=== PATIENT | female | born 1955 | race Caucasian/White ===

== ENCOUNTER 2018-04-03 12:37 | Observation (INO) | payer OTHER ==
[~2018-04-03] VITALS: Ht 175.3 cm; Wt 70.3 kg
--- OUTSIDE RECORDS SUMMARY | 2018-04-03 12:40 | XMS REPORT | Clinical Summary ---
Author Author [facility] Organization [facility] Address Unknown Phone Unavailable Care Team Providers Care Fire Safety Director Name Role Phone Florence Shine MD PCP Allergies Comments Active Allergy Reactions Severity Noted Date Amitriptyline 12/24/2017 Codeine 12/24/2017 Sulfa (Sulfonamide 12/24/2017 Antibiotics) Medications End Date Status Medication Sig Dispensed Refills Start Date Active BISAC-EVAC 10 mg UNW AND I 1 1 suppository SUP REC QD 8 UTD Active lygypnfmya-wnhtvyf-azzzkd TK ONE C PO 3 ne (FIORINAL) 50-325-40 TID 8 mg per capsule Active diazePAM (VALIUM) 5 MG TK 1 T PO BID 0 tablet 8 Active ergocalciferol (VITAMIN TK 1 C PO 1 0 D2) 50,000 unit capsule TIME A WK 8 Active escitalopram (LEXAPRO) 20 TK 2 TS PO QD 1 MG tablet 8 Active gabapentin (NEURONTIN) TK 3 CS PO 1 300 mg capsule TID 8 Active fenofibrate (TRICOR) 48 TK 1 T PO QD 2 MG tablet 8 Active HYDROcodone-acetaminophen TAKE 1 TABLET 0 (NORCO) 10-325 mg per BY MOUTH 8 tablet NEEDED 2 TO 3 TIMES DAILY Active hyoscyamine (LEVSIN) DIS 1 T UNT B 0 0.125 mg SL tablet MEALS PRN 8 Active lidocaine-tetracaine 7-7 0 % cream 8 Active omeprazole (PriLOSEC) 40 TK 1 C PO BID 2 MG capsule 8 Active pravastatin (PRAVACHOL) TK 1 T PO QD 2 40 MG tablet 8 Active tiZANidine (ZANAFLEX) 4 TK 1 T PO Q 8 0 MG tablet H PRF MSP 8 Active traZODone (DESYREL) 50 MG TK 2 TS PO 2 tablet ONCE A DAY HS 8 PRN Active BOTOX 200 unit recon soln 0 8 Active aspirin (ECOTRIN) 81 MG Take 81 mg by 0 enteric coated tablet mouth daily. Active sucralfate (CARAFATE) 100 Take 1 g by 0 mg/mL suspension mouth 4 (four) times a day with meals and nightly. Active ferrous sulfate 325 (65 Take 325 mg 0 FE) MG tablet by mouth daily with breakfast. Active fexofenadine (SALLY) Take 180 mg 0 180 MG tablet by mouth daily. Active Problems Not on file Encounters Care Team Description Date Type Specialty Todd Oliver MD ESOPHAGOGASTRODUODENOSCOPY (EGD) 12/25/2017 Surgery Gastroenterology Willie Lagos MD 12/25/2017 Anesthesia Gastroenterology Event Todd Oliver MD 12/25/2017 Hospital Gastroenterology Encounter after 04/02/2017 Family History Medical History Relation Name Comments Heart disease Father Colon cancer Maternal Grandmother Diabetes Maternal Grandmother Colon cancer Mother Relation Name Status Comments Father Maternal Grandmother Mother Social History Date Tobacco Use Types Packs/Day Years Used Current Every Day Smoker Cigarettes 0.1 Smokeless Tobacco: Never Used Comments: 2-3 cigarettes per day Alcohol Use Drinks/Week oz/Week Comments No Sex Assigned at Date Recorded Not on file Industry Job Start Date Occupation Not on file Not on file Not on file Travel End Travel History Travel Start No recent travel history available. Last Filed Vital Signs Time Taken Vital Sign Reading 12/25/2017 8:13 AM CDT Blood Pressure 166/70 12/25/2017 8:13 AM CDT Pulse 60 12/25/2017 8:00 AM CDT Temperature 36.6 C (97.8 F) 12/25/2017 8:13 AM CDT Respiratory Rate 17 12/25/2017 8:13 AM CDT Oxygen Saturation 98% - Inhaled Oxygen - Concentration - Weight - 12/25/2017 6:45 AM CDT Height 175.3 cm (5' 9") - Body Mass Index - Plan of Treatment Not on file Procedures Comments Procedure Name Priority Date/Time Associated Diagnosis SURGICAL PATHOLOGY Routine 12/25/2017 REQUEST 7:53 AM CDT ESOPHAGOGASTRODUODENOSCOP 12/25/2017 R10.9, D64.9, K25.7, Y (EGD) 7:45 AM CDT K21.9 ABDOMINAL PAIN, ANEMIA, GASTRIC ULCER GERD ECG 12-LEAD Routine 12/25/2017 6:37 AM CDT after 04/02/2017 Results * Surgical pathology request (12/25/2017 7:53 AM CDT) [facility] DEPARTMENT OF PATHOLOGY AND GENOMIC MEDICINE Surgical pathology report See link below for PDF Lab [facility] DEPARTMENT OF Report PATHOLOGY AND GENOMIC MEDICINE Result status This is Final Report for [facility] DEPARTMENT OF [id number] PATHOLOGY AND GENOMIC MEDICINE Performing Organization Address City[facility] Phone Number [facility] DEPARTMENT [address] [place] [address] PATHOLOGY AND GENOMIC MEDICINE * ECG 12 lead (12/25/2017 6:37 AM CDT) Ventricular rate 166 [facility] Atrial rate 166 [facility] QRSD interval 6 [facility] QT interval 90 [facility] QTC interval 149 [facility] QRS axis 1 0 [facility] T wave axis 266 [facility] EKG impression Demand pacemaker, [facility] interpretation is based on intrinsic rhythm-Undetermined rhythm-Indeterminate axis-Pulmonary disease pattern-Nonspecific ST and T wave abnormality-Abnormal ECG-No previous ECGs available- Performing Organization Address City/State[facility] Phone Number [facility] MUSE [address] [place] [address] after 04/02/2017 Insurance Payer Benefit Subscriber ID Type Phone Address Plan / Group [facility] xxxxxxxxx HMO/PPO THCARE CHOICE/CHO ICE + Advance Directives Patient has advance care planning documents on file. For more information, erickson snyder contact: Bobby Salinas [address] [place] [address]
--- NOTE | 2018-04-03 13:09 | Diagnostic Imaging Report ---
CT BRAIN WO HISTORY: Altered mental status COMPARISON: None. TECHNIQUE: Noncontrast axial scans were obtained from skull base to the vertex. Coronal and sagittal reconstructions obtained from the axial data. One or more of the following dose reduction techniques were used: Automated exposure control, adjustment of the mA and/or kV according to patient size, and/or utilization of iterative reconstruction technique. DISCUSSION: Scalp/Skull: Unremarkable. Brain sulci: Appropriate for patient's age. Ventricles: Normal in size and configuration. No hydrocephalus. Extra-axial spaces: No masses or fluid collections. Mild carotid siphon calcifications are present. Parenchyma: Mild periventricular white matter hypodensities are likely chronic microvascular ischemic changes. Otherwise, no masses, hemorrhage, or large vascular territory acute infarct. Dural sinuses: No abnormal densities. Sellar/Suprasellar region: Intact. Skull base: Intact. Incidental findings: None. IMPRESSION: No acute intracranial abnormalities. Mild supratentorial chronic microvascular ischemic change. Signed by: Dr. Harrison Barber M.D. on 04/03/2018 1:06 PM
--- NOTE | 2018-04-03 13:25 | Diagnostic Imaging Report ---
A single frontal view of the chest. HISTORY: Altered mental status, found down COMPARISON: None available. DISCUSSION: Portable technique, limits sensitivity of the exam. Tubes/Lines: Left-sided implanted dual-lead cardiac device. Lungs and pleura: Low lung volumes result in bibasilar vascular crowding, accentuation of the pulmonary interstitial markings, central pulmonary vasculature, and the cardiac silhouette. Allowing for these limitations, the findings are as follows: No evidence of a consolidative pneumonia or pulmonary alveolar edema. No definite pleural effusion or pneumothorax is identified. Heart and mediastinum: The cardiomediastinal silhouette appears unremarkable. Bones: No acute osseous lesion is identified, given this limited exam. IMPRESSION: No acute radiographic abnormality. Signed by: Dr. Dajuan Gimenez D.O., M.M.M. on 04/03/2018 1:21 PM
[2018-04-03 13:38] LABS: BASOPHILS # (AUTO) 0.1 (0.0-0.1); BASOPHILS % 0.8 % (0.0-1.0); EOSINOPHILS # (AUTO) 0.2 (0.0-0.4); EOSINOPHILS % 3.1 % (0.0-6.0); HEMATOCRIT 39.3 % (34.2-44.1); HEMOGLOBIN 12.6 g/dL (12.0-16.0); LYMPHOCYTES # (AUTO) 1.3 (1.0-3.2); LYMPHOCYTES % 17.4 % (18.0-39.1); MEAN CORPUSCULAR HGB CONC 32.1 g/dL (31-35); MEAN CORPUSCULAR VOLUME 99.7 fL (81-99); MONOCYTES # (AUTO) 0.3 (0.2-0.8); MONOCYTES % 4.2 % (4.4-11.3); NEUTROPHILS # (AUTO) 5.7 (2.1-6.9); NEUTROPHILS % 74.2 % (38.7-80.0); PLATELET COUNT 251 x10e3/uL (140-360); RED BLOOD COUNT 3.94 x10e6/uL (3.6-5.1); RED CELL DISTRIBUTION WIDTH 12.6 % (11.7-14.4)
[2018-04-03 13:50] LABS: ALANINE AMINOTRANSFERASE 11 IU/L (0-55); ALBUMIN 3.5 g/dL (3.5-5.0); ALKALINE PHOSPHATASE 91 IU/L (40-150); ANION GAP 13.4 mmol/L (8-16); BLOOD UREA NITROGEN 11 mg/dL (7-26); BUN/CREATININE RATIO 14 (6-25); CALCIUM 9.8 mg/dL (8.4-10.2); CARBON DIOXIDE 27 mmol/L (22-29); CHLORIDE 105 mmol/L (98-107); CREATINE KINASE 55 IU/L (29-168); CREATININE, SERUM 0.81 mg/dL (0.57-1.11); EST GLOMERULAR FILTRATION RATE > 60 ML/MIN (60-); GLUCOSE 92 mg/dL (74-118); POTASSIUM 4.4 mmol/L (3.5-5.1); SODIUM 141 mmol/L (136-145)
[2018-04-03 14:15] LABS: BILIRUBIN,URINE NEGATIVE (NEGATIVE); CLARITY,URINE SL CLOUDY (CLEAR); COLOR,URINE STRAW (YELLOW); KETONES,URINE NEGATIVE (NEGATIVE); LEUKOCYTE ESTERASE ,URINE NEGATIVE (NEGATIVE); NITRITE,URINE NEGATIVE (NEGATIVE); PROTEIN,URINE DIPSTICK NEGATIVE (NEGATIVE); URINE UROBILINOGEN 0.2 mg/dL (0.2 - 1)
[2018-04-03 14:28] LABS: BACTERIA,URINE MODERATE /HPF; HYALINE CASTS 0-1 (0-1)
[2018-04-03 14:39] LABS: INR 0.82; PARTIAL THROMBOPLASTIN TIME 27.5 seconds (23.8-35.5); PROTHROMBIN TIME 12.1 seconds (11.9-14.5)
[2018-04-03 15:14] LABS: AMPHETAMINES SCREEN,URINE NEGATIVE (NEGATIVE); BENZODIAZEPINES SCREEN,URINE POSITIVE (NEGATIVE); PHENCYCLIDINE SCREEN,URINE NEGATIVE (NEGATIVE)
[2018-04-03] MEDS ORDERED: ASPIRIN 81 MG CHEW TAB PO ONE (15:45)
--- OUTSIDE RECORDS SUMMARY | 2018-04-03 16:20 | XMS REPORT | Clinical Summary ---
Author Author [facility] Organization [facility] Address Unknown Phone Unavailable Care Team Providers Care Insulation Batting Machine Operator Name Role Phone Florence Shine MD PCP Allergies Comments Active Allergy Reactions Severity Noted Date Amitriptyline 12/24/2017 Codeine 12/24/2017 Sulfa (Sulfonamide 12/24/2017 Antibiotics) Medications End Date Status Medication Sig Dispensed Refills Start Date Active BISAC-EVAC 10 mg UNW AND I 1 1 suppository SUP REC QD 8 UTD Active dhbmvpkxml-qilpcqc-fqlssj TK ONE C PO 3 ne (FIORINAL) [...] Surgical pathology request (12/25/2017 7:53 AM CDT) [facility] DEPARTMENT OF PATHOLOGY AND GENOMIC MEDICINE Surgical pathology report See link below for PDF Lab [facility] DEPARTMENT OF Report PATHOLOGY AND GENOMIC MEDICINE Result status This is Final Report for [facility] DEPARTMENT OF [id number] PATHOLOGY AND GENOMIC MEDICINE Performing Organization Address City/[facility] Phone Number [facility] DEPARTMENT [address] [place] [address] PATHOLOGY AND GENOMIC MEDICINE * ECG 12 [...] ECG-No previous ECGs available- Performing Organization Address City/State/[facility] Phone Number [facility] [address] [place] [address] after 04/02/2017 Insurance Payer Benefit Subscriber ID Type Phone Address Plan / Group [facility] xxxxxxxxx HMO/PPO THCARE CHOICE/CHO ICE + Advance Directives Patient has advance care planning documents on file. For more information, erickson snyder contact: Bobby Salinas [address] [place] [address]
--- OUTSIDE RECORDS SUMMARY | 2018-04-03 16:20 | XMS REPORT ---
Author Author [facility] Address Unknown Phone Unavailable Care Team Providers Care Service Transformer Repair Supervisor Name Role Phone Arlene LOPEZ Unavailable Unavailable Problems This patient has no known problems. Allergies, Adverse Reactions, Alerts This patient has no known allergies or adverse reactions. Medications This patient has no known medications. Results Test Description Test Time Test Comments Text Results Atomic Results Result Comments CHEST SINGLE (PORTABLE) 2018-04-03 13:19:00 [facility] [address] [address] Patient Name: DUDLYE DENNIS MR #: [id number] : 1955 Age/Sex: 62/F Req #: [id number] Adm Physician: Ordered by: VAISHNAVI BOLANOS NP Report #: [id number] Location: ER Room/Bed: Procedure: [id number] DX/CHEST SINGLE (PORTABLE) Exam Date: 04/03/18 Exam Time: 1250 REPORT STATUS: Signed A single frontal view of the chest. HISTORY: Altered mental status, found down COMPARISON: None available. DISCUSSION: Portable technique, limits sensitivity of the exam. Tubes/Lines: Left-sided implanted dual-lead cardiac device. Lungs and pleura: Low lung volumes result in bibasilar vascular crowding, accentuation of the pulmonary interstitial markings, central pulmonary vasculature, and the cardiac silhouette. Allowing for these limitations, the findings are as follows: No evidence of a consolidative pneumonia or pulmonary alveolar edema. No definite pleural effusion or pneumothorax is identified. Heart and mediastinum: The cardiomediastinal silhouette appears unremarkable. Bones: No acute osseous lesion is identified, given this limited exam. IMPRESSION: No acute radiographic abnormality. Signed by: Dr. Dajuan Gimenez D.O., M.M.M. on 04/03/2018 1:21 PM Dictated By: DAJUAN GIMENEZ DO 1321 Transcribed By: ALESSANDRO on 04/03/18 132 COPY TO: VAISHNAVI BOLANOS NP CT BRAIN WO 2018-04-03 13:03:00 [address] [address] Patient Name: DUDLEY DENNIS MR #: [id number] : 1955 Age/Sex: 62/F Req #: [id number] Adm Physician: Ordered by: VAISHNAVI BOLANOS NP Report #: [id number] Location: ER Room/Bed: Procedure: [id number] CT/CT BRAIN WO Exam Date: 04/03/18 Exam Time: 1230 REPORT STATUS: Signed CT BRAIN WO HISTORY: Altered mental status MARYCARMEN RISON: None. TECHNIQUE: Noncontrast axial scans were obtained from skull base to the vertex. Coronal and sagittal reconstructions obtained from the axial data. One or more of the following dose reduction techniques were used: Automated exposure control, adjustment of the mA and/or kV according to patient size, and/or utilization of iterative reconstruction technique. DISCUSSION: Scalp/Skull: Unremarkable. Brain sulci: Appropriate for patient's age. Ventricles: Normal in size and configuration. No hydrocephalus. Extra-axial spaces: No masses or fluid collections. Mild carotid siphon calcifications are present. Parenchyma: Mild periventricular white matter hypodensities are likely chronic microvascular ischemic changes. Otherwise, no masses, hemorrhage, or large vascular territory acute infarct. Dural sinuses: No abnormal densities. Sellar/Suprasellar region: Intact. Skull base: Intact. Incidental findings: None. IMPRESSION: No acute intracranial abnormalities. Mild supratentorial chronic microvascular ischemic change. Signed by: Dr. Harrison Barber M.D. on 04/03/2018 1:06 PM Dictated By: HARRISON BARBER MD 1306 Transcribed By: ALESSANDRO on 04/03/18 1306 COPY TO: VAISHNAVI BOLANOS NP
[2018-04-03] MEDS: SODIUM CHLORIDE 0.9% 1000ML 1,000 ML IV SCH (17:30)
[2018-04-03] MEDS ORDERED: CETIRIZINE HCL10 MG PO (18:52)
[2018-04-03] MEDS ORDERED: BACLOFEN10 MG PO (18:52)
[2018-04-03] MEDS ORDERED: DIAZEPAM5 MG PO (18:52)
[2018-04-03] MEDS ORDERED: HYDROCODON-ACE1 EAC9 PO (18:52)
[2018-04-03] MEDS ORDERED: HYOSCYAMINE0.125 MG PO (18:52)
[2018-04-03] MEDS ORDERED: TIZANIDINE HCL4 MG PO (18:52)
[2018-04-03] MEDS ORDERED: BUTALB-ACETAMI1 EACH PO (18:52)
[2018-04-03] MEDS ORDERED: GABAPENTIN300 MG PO (18:52)
[2018-04-03] MEDS ORDERED: TRAZODONE HCL100 MG PO (18:52)
[2018-04-03 21:31] LABS: CREATINE KINASE MB 0.9 ng/mL (0-5.0)
--- NOTE | 2018-04-03 22:49 | Consultation ---
DATE OF CONSULTATION: April 03, 2018 NEUROLOGY CONSULT NOTE HISTORY OF PRESENT ILLNESS: Ms. Andrade is a 62-year-old right hand dominant woman with reported past medical history of gastroparesis, autonomic dysfunction, and multiple syncopal events, admitted to [facility] on April 03, 2018, with encephalopathy. Late in the morning/early in the afternoon on the day of admission, the patient was found on the ground unresponsive near [facility] which is within 1 mile of the hospital. When asked what she last remembers, Ms. Andrade reports walking on a sidewalk near [facility]. She is uncertain as to the content of her next memory. The patient endorses a possible left-sided visual disturbance, but cannot describe it further. She reports possible left hemiparesis. The patient does not endorse dysarthria or aphasia, hemihypesthesia, or dizziness. Ms. Andrade has not attempted to walk since she was found on the ground unresponsive. Therefore, it is unknown if she has poor balance or impairment of gait. As stated above, the patient is very confused. Ms. Andrade is aware of her confusion and becomes easily frustrated when she is unable to answer questions that in her mind she "ought to know the answer to". Ms. Andrade was brought to the emergency center at [facility] for further evaluation. Upon arrival in the emergency center, the patient was afebrile with a blood pressure of 141/95 mmHg and a pulse of 69 beats per minute. The patient's neurological examination was significant for a decreased level of responsiveness, disorientation to place, time, and situation, as well as left-sided weakness, especially affecting the left leg. Inconsistencies in the patient's ability to recall certain information as well as to follow commands was noted. While in the emergency center, routine blood work was obtained and was unremarkable except as follows: A urine drug screen was positive for opiates and benzodiazepines. A CT of the brain without contrast was performed while the patient was in the emergency center. There is no evidence of recent large territorial ischemia or hemorrhage. Ms. Quinns encephalopathy has improved very little while in the emergency center. Therefore, the patient will be admitted to [facility] under observation status for further evaluation and treatment of her symptoms. The patient does report possibly experiencing similar symptoms previously. These symptoms were attributed to a medication or medications. Ms. Andrade does not report any recent changes in her medications (i.e., in the past few 2 days). She does not report missing doses of her medications nor does she report taking extra doses of her medications. Ms. Andrade endorses a possible prior seizure, but cannot recall any of the details surrounding this episode. REVIEW OF SYSTEMS: Confusion, blurred vision, weakness of the left arm and left leg. Otherwise, a 12-point review of systems is negative. PAST MEDICAL HISTORY: Autonomic dysfunction, gastroparesis, and multiple syncopal events. PAST SURGICAL HISTORY: Ms. Andrade reports having a pacemaker placed for gastroparesis. However, the pacemaker is located in her chest between her left breast and her left color bone. The patient has a card from [employer] identifying the pacemaker as an AICD/defibrillator. The only other surgery the patient reports is a possible gastric bypass. PAST HOSPITALIZATIONS: Surgeries/procedures as listed, gastroparesis, multiple prior hospitalizations for various diagnoses at [facility]. FAMILY MEDICAL HISTORY: The patient's paternal grandparents are . Their medical histories are unknown. The patient's maternal grandparents are . The maternal grandfather's medical history is unknown. The maternal grandmother is from heart disease. The patient's father is . His only known history is transverse myelitis in his 20s or 30s. The patient's mother is . She had a medical history of early onset Alzheimer disease. The patient has 2 siblings, a brother and a sister, both of whom are living. The brother is healthy. The sister has hepatitis C and arthritis. Ms. Andrade has 1 child, a son, who is alive and healthy. SOCIAL HISTORY: The patient is . 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 The patient endorses a prior history of tobacco use, but quit smoking cigarettes 4 to 5 weeks ago. The patient endorses a prior history of alcohol abuse. However, she has been sober for 27 years. The patient does not report current or prior recreational drug use. HOME MEDICATIONS 1. Hyoscyamine 0.125 mg take 1 tablet sublingually before meals as needed. 2. Gabapentin 300 mg 3 capsules by mouth 3 times daily. 3. Trazodone 100 mg take 1 tablet by mouth at bedtime as needed for insomnia. 4. Cetirizine 10 mg take 1 tablet by mouth daily as needed for allergies. 5. Baclofen 10 mg take 1/2 to 1 tablet by mouth twice daily. 6. Fioricet 1 tablet by mouth every 4 hours as needed for headache. 7. Hydrocodone/acetaminophen 10 and 325 mg take 1 tablet by mouth twice daily to 3 times daily as needed for pain. 8. Tizanidine 4 mg 1 tablet by mouth every 8 hours as needed for muscle spasm. 9. Diazepam 5 mg take 1 tablet by mouth twice daily as needed for anxiety. ALLERGIES: SULFA. NO KNOWN FOOD ALLERGIES. NO KNOWN ALLERGIES TO LATEX. NO KNOWN ALLERGIES TO IODINE OR OTHER CONTRAST MATERIALS. PHYSICAL EXAMINATION VITAL SIGNS: Height 67 inches, weight 150 pounds, BMI 23.5 kg per meter squared. Blood pressure 141/95 mmHg, pulse 69 beats per minute, respiratory rate 17 breaths per minute, and oxygen saturation 95% on room air. GENERAL: The patient is awake and alert. Ms. Andrade appears mildly distressed secondary to not being able to recall events which occurred earlier in the day. HEENT: Normocephalic, atraumatic. Pupils are equal, round, and reactive to light. Moist mucous membranes. NECK: Supple. No appreciable thyromegaly. No appreciable carotid bruits. CARDIOVASCULAR: S1 and S2, regular rate and rhythm. No murmurs, rubs, or gallops. RESPIRATORY: Clear to auscultation bilaterally. No wheezes, rhonchi, or rales. EXTREMITIES: The skin is warm and dry. No clubbing, cyanosis, or edema. The posterior tibial and dorsalis pedis pulses are 2+ and symmetric. SKIN: No rashes or lesions. NEUROLOGIC Memory/Attention: The patient is awake and alert, oriented to person, place (hospital, city, county, state), but not to time or situation. Cranial Nerves: Cranial nerve I: Not tested. Cranial nerve II, III, IV, and : Pupils are equal and round, react briskly to light (from 5 mm to 3 mm). Extraocular movements intact. No nystagmus. Cranial nerve V: Sensation to light touch and pinprick is intact in the bilateral V1 through V3 distributions. Strength of the temporalis and masseter muscles is within normal limits. Cranial nerve VII: The face is symmetric as are all facial movements. Strength is within normal limits. Cranial nerve VIII: Hearing is intact to finger rub bilaterally. Cranial nerve IX, X: The soft palate elevates equally and symmetrically. Cranial nerve XII: Normal strength of the bilateral sternocleidomastoid and trapezius muscles. Cranial nerve XII: The tongue protrudes midline and moves symmetrically from side to side. Strength: Bulk is normal. Strength is 5/5 in the bilateral deltoids, biceps, triceps, wrist flexors and extensors, finger flexors and extensors, intrinsic hand muscles, hip flexors, knee flexors and extensors, ankle dorsiflexion and plantar flexion, and intrinsic foot muscles. Tone is normal. DTRs: Deep tendon reflexes are 1+ and symmetric at the triceps, biceps, brachioradialis, patellae, and Achilles. Plantar responses are flexor bilaterally. Sensation: Sensation is intact to light touch and pinprick in both arms and both legs. Cerebellar: Nqlonu-qvwo-cmwhoa and heel-barnes movements are intact without dysmetria or other impairment. Gait: Deferred. Speech: Spontaneous speech is normal without appreciable dysarthria or aphasia. Repetition is intact. Involuntary Movements: None. Pronator Drift: None. LABORATORY DATA: A comprehensive metabolic panel is unremarkable. Lactic acid 16.2. The CBC with differential and platelets reveals a white blood cell count of 7.63 with 74.2% neutrophils, 17.4% lymphocytes, 4.2% monocytes, 3.1% eosinophils, and 0.8% basophils. The hemoglobin and hematocrit are 12.6 and 39.3 respectively. The platelet count is 251,000. PT, PTT, and INR are within normal limits. A urinalysis is significant for 1+ blood, 6 to 10 red blood cells, and moderate urine bacteria. A urine drug screen is positive for opiates and benzodiazepines. DIAGNOSTIC STUDIES: Electrocardiogram, April 03, 2018: Normal sinus rhythm at 66 beats per minute. Chest x-ray, April 03, 2018: No acute radiographic abnormality. CT of the brain without contrast, April 03, 2018: On my review, there is no evidence of recent large territorial ischemia, hemorrhage, mass, or mass effect. Cerebral volumes are appropriate for age. There are findings compatible with mild to moderate chronic small vessel ischemic disease. ASSESSMENT AND PLAN: Ms. Andrade is a 62-year-old right hand dominant woman with past medical history as detailed, admitted to [facility] with encephalopathy of unknown etiology. At present, other than disorientation to time and situation, the patient's neurological examination is nonfocal. Her laboratory data and other diagnostic studies have been reviewed and are documented above. As stated above, the etiology of the patient's confusion is unclear. It is unlikely the patient's symptoms represent a transient ischemic attack due to the duration of the symptoms. A stroke is a possibility but unlikely given an otherwise nonfocal neurological examination. A seizure with prolonged postictal phase is a possible diagnosis. Ms. Andrade has prescriptions for pain medications, muscle relaxants, and benzodiazepines. It is possible her symptoms are due to acute drug intoxication. RECOMMENDATIONS 1. Additional laboratory data will be ordered as follows: Thyroid-stimulating hormone, ammonia level, vitamin B1 level, vitamin B12 level, rapid plasma reagent, urine culture, blood cultures x2, and blood alcohol level. 2. A routine EEG will be ordered to evaluate for seizure activity. 3. Ms. Andrade reports her pacemaker is MRI compatible. Efforts will be made to determine whether or not Ms. Andrade may undergo an MRI of the brain without contrast. Otherwise, a repeat CT of the brain without contrast will be considered on April 04, 2018. 4. Avoid sedative/hypnotic and pain medications as these will alter the patient's sensorium. 5. Utilize environmental cues to combat delirium. 6. Defer treatment of the remaining medical comorbidities to the primary and other services following the patient. Thank you for this consultation. I will continue to follow the patient while she remains in the hospital. TIME SPENT: 70 minutes. Job#: [id number] JACE
[2018-04-04] VITALS (8 sets, daily range): BP systolic 124–144; BP diastolic 58–69
[2018-04-04] MEDS: SODIUM CHLORIDE 0.9% 1000ML 1,000 ML IV SCH (04:13)
[2018-04-04 04:57] LABS: BASOPHILS # (AUTO) 0.1 (0.0-0.1); BASOPHILS % 0.6 % (0.0-1.0); EOSINOPHILS # (AUTO) 0.2 (0.0-0.4); EOSINOPHILS % 2.3 % (0.0-6.0); HEMATOCRIT 34.9 % (34.2-44.1); HEMOGLOBIN 11.6 g/dL (12.0-16.0); LYMPHOCYTES # (AUTO) 1.8 (1.0-3.2); LYMPHOCYTES % 22.7 % (18.0-39.1); MEAN CORPUSCULAR HEMOGLOBIN 32.2 pg (28-32); MEAN CORPUSCULAR HGB CONC 33.2 g/dL (31-35); MEAN CORPUSCULAR VOLUME 96.9 fL (81-99); MONOCYTES # (AUTO) 0.5 (0.2-0.8); MONOCYTES % 5.9 % (4.4-11.3); NEUTROPHILS # (AUTO) 5.5 (2.1-6.9); NEUTROPHILS % 68.3 % (38.7-80.0); PLATELET COUNT 242 x10e3/uL (140-360); RED CELL DISTRIBUTION WIDTH 12.4 % (11.7-14.4)
[2018-04-04 05:24] LABS: ALANINE AMINOTRANSFERASE 10 IU/L (0-55); ALBUMIN 3.2 g/dL (3.5-5.0); ALKALINE PHOSPHATASE 85 IU/L (40-150); ANION GAP 12.9 mmol/L (8-16); BLOOD UREA NITROGEN 9 mg/dL (7-26); BUN/CREATININE RATIO 14 (6-25); CALCIUM 9.2 mg/dL (8.4-10.2); CARBON DIOXIDE 23 mmol/L (22-29); CHLORIDE 109 mmol/L (98-107); CREATININE, SERUM 0.63 mg/dL (0.57-1.11); EST GLOMERULAR FILTRATION RATE > 60 ML/MIN (60-); GLUCOSE 103 mg/dL (74-118); POTASSIUM 3.9 mmol/L (3.5-5.1); SODIUM 141 mmol/L (136-145)
[2018-04-04 05:44] LABS: CREATINE KINASE MB 0.6 ng/mL (0-5.0)
[2018-04-04] MEDS ORDERED: HYDRALAZINE HCL 20 MG/ML VIAL IV PRN (06:45)
[2018-04-04] MEDS ORDERED: ONDANSETRON HCL INJ 2 MG/ML VIAL IV PRN (06:45)
[2018-04-04] MEDS ORDERED: NICOTINE 7 MG PATCH TOP SCH (09:00)
[2018-04-04] MEDS ORDERED: NON-FORMULARY MEDICATION (Cetirizine Hcl 10 MG) PO SCH (09:00)
[2018-04-04] MEDS: HYOSCYAMINE 0.125 MG TAB PO SCH ×2 (09:02→13:24)
[2018-04-04] MEDS: CEFTRIAXONE SOD 1 GM VIAL IV SCH ×2 (09:02→18:21)
[2018-04-04] MEDS: FAMOTIDINE 20 MG/2 ML VIAL IV SCH ×2 (09:02→16:21)
[2018-04-04] MEDS: LORATADINE 10 MG TAB PO SCH (09:02)
[2018-04-04] MEDS: GABAPENTIN 300 MG CAP PO SCH ×3 (09:02→21:37)
[2018-04-04] MEDS ORDERED: HYOSCYAMINE SULFATE 0.125 MG PO SCH (10:00)
[2018-04-04 11:48] LABS: CREATINE KINASE 60 IU/L (29-168)
[2018-04-04] MEDS ORDERED: HYDROCODONE/APAP 10MG-325MG TAB PO PRN (13:00)
[2018-04-04] MEDS: ACETAMINOPHEN 325 MG TAB PO PRN (13:24)
[2018-04-04] MEDS ORDERED: LEVETIRACETAM 500MG/5ML VIAL 1,500 MG in SODIUM CHLORIDE 0.9% 100 ML 100 ML IV SCH (20:00)
--- NOTE | 2018-04-04 21:16 | Electroencephalogram ---
DATE OF STUDY: April 04, 2018 REQUESTING PHYSICIAN: Dr. Ani Maya. HISTORY: This is a 62-year-old woman with history of a possible seizure is having an EEG for evaluation of epileptiform activity. The patient is taking the following medication that might affect the EEG: Diazepam. TECHNIQUE: This is a routine, portable EEG, recorded digitally using the international 10/20 electrode placement system, and done in the inpatient setting with the patient awake. The EEG is technically limited because of muscle and electrical artifact. DESCRIPTION: Well-organized, well-sustained 6-7 Hertz activity is best seen symmetrically over the posterior head regions, 13-14 Hertz activity is intermixed and probably due to medication effect. Occasional spike slow wave complexes originate in the right frontal region. No electrographic seizures are seen. Sleep is not recorded. Photic stimulation does produce a driving response. Hyperventilation is not performed. INTERPRETATION: This EEG is abnormal with the patient awake due to: 1. Occasional epileptiform discharges originating from the right frontal region. 2. Diffuse slowing of background electrocortical activity compatible with mild generalized encephalopathy. Clinical correlation is recommended. Job#: [id number] LEONILA
[2018-04-04] MEDS ORDERED: SODIUM CHLORIDE 0.9% 250ML 250 ML ONE (21:29)
[2018-04-04] MEDS: TRAZODONE HCL 50 MG TAB PO PRN (21:38)
[2018-04-05] VITALS (10 sets, daily range): BP systolic 101–130; BP diastolic 51–66
[2018-04-05 03:42] LABS: BASOPHILS # (AUTO) 0.1 (0.0-0.1); BASOPHILS % 1.1 % (0.0-1.0); EOSINOPHILS # (AUTO) 0.2 (0.0-0.4); EOSINOPHILS % 3.6 % (0.0-6.0); HEMATOCRIT 33.5 % (34.2-44.1); LYMPHOCYTES # (AUTO) 2.7 (1.0-3.2); LYMPHOCYTES % 41.1 % (18.0-39.1); MEAN CORPUSCULAR HEMOGLOBIN 32.3 pg (28-32); MEAN CORPUSCULAR HGB CONC 32.8 g/dL (31-35); MEAN CORPUSCULAR VOLUME 98.2 fL (81-99); MONOCYTES # (AUTO) 0.5 (0.2-0.8); MONOCYTES % 6.9 % (4.4-11.3); NEUTROPHILS # (AUTO) 3.1 (2.1-6.9); NEUTROPHILS % 47.1 % (38.7-80.0); PLATELET COUNT 223 x10e3/uL (140-360); RED BLOOD COUNT 3.41 x10e6/uL (3.6-5.1); RED CELL DISTRIBUTION WIDTH 12.3 % (11.7-14.4)
[2018-04-05 04:06] LABS: ANION GAP 11.6 mmol/L (8-16); BLOOD UREA NITROGEN 11 mg/dL (7-26); BUN/CREATININE RATIO 17 (6-25); CARBON DIOXIDE 23 mmol/L (22-29); CHLORIDE 110 mmol/L (98-107); CREATININE, SERUM 0.65 mg/dL (0.57-1.11); EST GLOMERULAR FILTRATION RATE > 60 ML/MIN (60-); GLUCOSE 94 mg/dL (74-118); MAGNESIUM 2.2 MG/DL (1.3-2.1); POTASSIUM 3.6 mmol/L (3.5-5.1); SODIUM 141 mmol/L (136-145)
[2018-04-05] MEDS: CEFTRIAXONE SOD 1 GM VIAL IV SCH (06:12)
[2018-04-05] MEDS: ACETAMINOPHEN 325 MG TAB PO PRN ×2 (06:45→16:14)
[2018-04-05] MEDS: GABAPENTIN 300 MG CAP PO SCH ×3 (09:10→20:44)
[2018-04-05] MEDS: LORATADINE 10 MG TAB PO SCH (09:10)
[2018-04-05] MEDS: LEVETIRACETAM 500 MG TAB PO SCH ×2 (09:10→16:14)
[2018-04-05] MEDS: FAMOTIDINE 20 MG/2 ML VIAL IV SCH ×2 (09:10→16:14)
[2018-04-05] MEDS ORDERED: KEPPRA500 MG PO (09:25)
[2018-04-05] MEDS ORDERED: HYOSCYAMINE0.125 MG PO (09:25)
[2018-04-05] MEDS: TRAZODONE HCL 50 MG TAB PO PRN (20:44)
[2018-04-06 04:05] VITALS: BP 116/53
[2018-04-06] MEDS: ACETAMINOPHEN 325 MG TAB PO PRN ×2 (05:42→12:58)
[2018-04-06 07:53] VITALS: BP 112/63
[2018-04-06] MEDS: GABAPENTIN 300 MG CAP PO SCH ×3 (08:24→20:53)
[2018-04-06] MEDS: LORATADINE 10 MG TAB PO SCH (08:24)
[2018-04-06] MEDS: FAMOTIDINE 20 MG/2 ML VIAL IV SCH ×2 (08:24→17:42)
[2018-04-06] MEDS: HYOSCYAMINE 0.125 MG TAB PO PRN (08:24)
[2018-04-06] MEDS: LEVETIRACETAM 500 MG TAB PO SCH ×2 (08:24→17:42)
[2018-04-06 12:01] VITALS: BP 118/56
[2018-04-06 16:27] VITALS: BP 125/49
[2018-04-06 20:00] VITALS: BP 115/55
[2018-04-06] MEDS: TRAZODONE HCL 50 MG TAB PO PRN (20:53)
[2018-04-06 21:30] VITALS: BP 115/55
[2018-04-07] VITALS (7 sets, daily range): BP systolic 110–132; BP diastolic 48–90
[2018-04-07 03:28] LABS: BASOPHILS # (AUTO) 0.1 (0.0-0.1); BASOPHILS % 1.1 % (0.0-1.0); EOSINOPHILS # (AUTO) 0.3 (0.0-0.4); HEMATOCRIT 34.8 % (34.2-44.1); HEMOGLOBIN 11.4 g/dL (12.0-16.0); LYMPHOCYTES # (AUTO) 2.9 (1.0-3.2); LYMPHOCYTES % 44.2 % (18.0-39.1); MEAN CORPUSCULAR HEMOGLOBIN 31.8 pg (28-32); MEAN CORPUSCULAR HGB CONC 32.8 g/dL (31-35); MEAN CORPUSCULAR VOLUME 96.9 fL (81-99); MONOCYTES # (AUTO) 0.5 (0.2-0.8); MONOCYTES % 7.8 % (4.4-11.3); NEUTROPHILS # (AUTO) 2.8 (2.1-6.9); NEUTROPHILS % 41.7 % (38.7-80.0); PLATELET COUNT 237 x10e3/uL (140-360); RED BLOOD COUNT 3.59 x10e6/uL (3.6-5.1); RED CELL DISTRIBUTION WIDTH 12.2 % (11.7-14.4)
[2018-04-07 03:45] LABS: ANION GAP 11.7 mmol/L (8-16); BLOOD UREA NITROGEN 15 mg/dL (7-26); BUN/CREATININE RATIO 22 (6-25); CALCIUM 9.2 mg/dL (8.4-10.2); CARBON DIOXIDE 25 mmol/L (22-29); CHLORIDE 108 mmol/L (98-107); CREATININE, SERUM 0.68 mg/dL (0.57-1.11); EST GLOMERULAR FILTRATION RATE > 60 ML/MIN (60-); GLUCOSE 94 mg/dL (74-118); MAGNESIUM 2.1 MG/DL (1.3-2.1); POTASSIUM 3.7 mmol/L (3.5-5.1); SODIUM 141 mmol/L (136-145)
[2018-04-07] MEDS: ACETAMINOPHEN 325 MG TAB PO PRN ×3 (03:46→18:59)
[2018-04-07] MEDS: LORATADINE 10 MG TAB PO SCH (08:38)
[2018-04-07] MEDS: GABAPENTIN 300 MG CAP PO SCH ×3 (08:38→21:00)
[2018-04-07] MEDS: LEVETIRACETAM 500 MG TAB PO SCH ×2 (08:38→16:17)
[2018-04-07] MEDS: FAMOTIDINE 20 MG/2 ML VIAL IV SCH ×2 (08:43→16:17)
[2018-04-07] MEDS: HYOSCYAMINE 0.125 MG TAB PO PRN (08:43)
[2018-04-07] MEDS ORDERED: DIAZEPAM 5 MG TAB PO PRN (12:45)
[2018-04-07] MEDS: ESCITALOPRAM OXALATE 10 MG TAB PO SCH (13:48)
[2018-04-08] VITALS: BP 120/48
[2018-04-08 01:22] VITALS: BP 129/60
[2018-04-08 04:29] LABS: BASOPHILS # (AUTO) 0.1 (0.0-0.1); BASOPHILS % 1.1 % (0.0-1.0); EOSINOPHILS # (AUTO) 0.3 (0.0-0.4); EOSINOPHILS % 5.2 % (0.0-6.0); HEMATOCRIT 33.8 % (34.2-44.1); HEMOGLOBIN 11.2 g/dL (12.0-16.0); LYMPHOCYTES # (AUTO) 2.7 (1.0-3.2); MEAN CORPUSCULAR HEMOGLOBIN 32.3 pg (28-32); MEAN CORPUSCULAR HGB CONC 33.1 g/dL (31-35); MEAN CORPUSCULAR VOLUME 97.4 fL (81-99); MONOCYTES # (AUTO) 0.5 (0.2-0.8); MONOCYTES % 7.8 % (4.4-11.3); NEUTROPHILS # (AUTO) 2.8 (2.1-6.9); NEUTROPHILS % 43.7 % (38.7-80.0); PLATELET COUNT 249 x10e3/uL (140-360); RED BLOOD COUNT 3.47 x10e6/uL (3.6-5.1); RED CELL DISTRIBUTION WIDTH 12.4 % (11.7-14.4)
[2018-04-08 04:56] LABS: ANION GAP 11.7 mmol/L (8-16); BLOOD UREA NITROGEN 17 mg/dL (7-26); BUN/CREATININE RATIO 26 (6-25); CALCIUM 9.2 mg/dL (8.4-10.2); CARBON DIOXIDE 25 mmol/L (22-29); CHLORIDE 108 mmol/L (98-107); CREATININE, SERUM 0.65 mg/dL (0.57-1.11); EST GLOMERULAR FILTRATION RATE > 60 ML/MIN (60-); GLUCOSE 95 mg/dL (74-118); MAGNESIUM 2.1 MG/DL (1.3-2.1); POTASSIUM 3.7 mmol/L (3.5-5.1); SODIUM 141 mmol/L (136-145)
[2018-04-08] MEDS: ACETAMINOPHEN 325 MG TAB PO PRN (05:11)
[2018-04-08] MEDS: FAMOTIDINE 20 MG/2 ML VIAL IV SCH (05:11)
[2018-04-08] MEDS ORDERED: LEXAPRO10 MG PO (06:55)
[2018-04-08 08:04] VITALS: BP 134/53
[2018-04-08 08:20] VITALS: BP 134/53
[2018-04-08] MEDS: ESCITALOPRAM OXALATE 10 MG TAB PO SCH (08:20)
[2018-04-08] MEDS: LEVETIRACETAM 500 MG TAB PO SCH (08:20)
[2018-04-08] MEDS: LORATADINE 10 MG TAB PO SCH (08:20)
[2018-04-08] MEDS: HYOSCYAMINE 0.125 MG TAB PO PRN (08:20)
[2018-04-08] MEDS: GABAPENTIN 300 MG CAP PO SCH (08:20)
--- NOTE | 2018-04-08 09:26 | Consultation ---
DATE OF CONSULTATION: April 07, 2018 PSYCHIATRIC CONSULTATION REASON FOR CONSULTATION: To evaluate patient's depression. HISTORY OF PRESENTING ILLNESS: The patient is 62-year-old female admitted to hospital for altered mental status. Psychiatric consultation is called to evaluate patient's altered mental status. As per the medical record, patient has history of autonomic dysfunction, multiple syncopal events, gastroparesis. She was admitted due to unresponsiveness near [facility]. CT scan showed no acute finding. Neurology is on board. Upon evaluation today, patient is found to be in the room with her co-worker/friend. She is alert, awake, and oriented to situation. She knows where she is, the current year, the current president. She does not appear to be confused at the time of assessment. She claims that she had a seizure and was found by a stranger who called for help. Patient denies history of seizure. Patient reports feeling depressed at this time. She claims that her mood is due to her medical health issue. She denies feeling hopeless or helpless, but at times does not believe that life if worth living if she continued to have her medical problem unresolved. She denies any suicidal ideations. She denies any hallucinations. She denies any homicidal ideation. She denies any issue with appetite, but reports issues with sleep. Patient stated that she would like to go home. She states she has several friends who can help her. She claims that if she goes home, she is able to take care of her groceries with the help of friends and also with drop off option from a grocery store. She states that her brother flew from out of state to see her over the weekend. Patient reports history of ADHD, PTSD, depression, anxiety. She takes Valium 5 mg as needed at home as per patient. She also reports taking Lexapro at home as well. PAST PSYCHIATRIC HISTORY: Patient reports history of ADHD, depression, anxiety, PTSD. She denies past suicide attempts. She denies alcohol and drugs use. FAMILY HISTORY: Denies. SOCIAL HISTORY: Patient states she lives alone. MENTAL STATUS EXAMINATION: The patient is elderly female. She is alert, awake, and oriented to situation. Her mood is depressed. She denies any suicidal or homicidal ideation. She denies any hallucination. Thought process is concrete. No delusion elicited. Affect is congruent with mood. Insight and judgment are fair. Memory appears to be grossly intact. Again, denies any suicidal or homicidal ideation, denies any hallucination. CURRENT MEDICATIONS: 1. Acetaminophen. 2. Hyoscyamine. 3. Keppra. 4. Loratadine. 5. Neurontin 300 mg 3 times a day. 6. Trazodone 100 mg p.o. nightly p.r.n. 7. Ondansetron. 8. Famotidine. 9. Hydralazine. CURRENT LABS: WBC is 6.5, RBC 3.47, hemoglobin 11.2, hematocrit 33.8, platelets is 249,000. Chemistry: Sodium is 149, potassium 3.7, chloride 108, CO2 25, BUN 17, creatinine is 0.65. ASSESSMENT: 1. Major depressive disorder, recurrent, moderate to severe. 2. History of posttraumatic stress disorder. 3. History of attention deficit hyperactivity disorder. PLAN: 1. To add Lexapro 10 mg p.o. every day as per patient's request. 2. Add Valium 5 mg p.o. 3 times a day as needed. 3. Continue with Neurontin 300 mg p.o. 3 times a day. 4. Continue with trazodone 100 mg p.o. nightly p.r.n. for insomnia. 5. Patient is on Keppra as per neuro. 6. Supportive therapy. 7. Monitor for mood and confusion. Thank you for this consultation. Dictated by NICKY Whelan Job#: [id number]
[2018-04-08] MEDS ORDERED: FAMOTIDINE 20 MG TAB PO SCH (16:00)
--- NOTE | 2018-04-08 17:54 | Discharge Summary ---
ADMISSION DIAGNOSES 1. Syncope with autonomic dysfunction. 2. Urinary tract infection. 3. Seasonal allergies. 4. Anxiety. 5. Migraines. 6. Generalized weakness. 7. Neuropathy. DISCHARGE DIAGNOSES 1. Syncope with autonomic dysfunction. 2. Urinary tract infection. 3. Seasonal allergies. 4. Anxiety. 5. Migraines. 6. Generalized weakness. 7. Neuropathy. 8. Seizures. HISTORY: The patient has a history of autonomic dysfunction, gastroparesis, anxiety, seasonal allergies, multiple syncopal episodes. SURGICAL HISTORY: Pacemaker/defibrillator, gastric bypass. FAMILY HISTORY: Noncontributory. SOCIAL HISTORY: Patient has a history of tobacco use, but quit 4 to 5 weeks ago. She also admits to being an alcoholic but quit 27 years ago. She denies illicit drug use. HOSPITAL COURSE: A 62-year-old female admitted to the hospital after being found unresponsive in the [facility] parking lot. She remembers walking on the sidewalk near [facility] but does not remember anything after that until getting to the hospital. She admits to confusion and left-sided weakness. Patient had a CT of the brain that was negative, a carotid Doppler that was negative. Urine drug screen positive for opiates and benzodiazepines. Blood culture negative. Urine culture negative. Neurology was consulted, who ordered an EEG. The EEG found occasional epileptiform discharges originating from the right frontal region. Patient was started on Keppra per neurology. She was ready to discharge home. Physical therapy had cleared the patient for home discharge the prior shift, then immediately before discharge PT went to work with the patient again and said that she needed inpatient rehab instead. So the discharge was held and inpatient rehab MD was consulted. The following day, after speaking to case management, they said insurance would not cover her inpatient rehab stay, so her discharge was changed to [facility] facility. Then, once physical therapy assessed her again, they said that she would be okay to discharge home if someone was staying with her. So now patient will discharge home with her friend with physical therapy. She will continue Keppra and Lexapro as prescribed per the psych MD. She will stop taking baclofen, butalbital, diazepam, [place] and tizanidine. She will follow up with neurology within a month and primary care in 1 to 2 weeks. Patient understands discharge instructions and agrees to plan. Vital signs stable. Patient afebrile. Dictated by: Rose Palermo, POLITICAL ANTHROPOLOGIST BERNARDO YODER MD Job#: [id number] TA
--- NOTE | 2018-04-09 15:19 | Progress Note ---
DATE: April 08, 2018 PSYCHIATRIC PROGRESS NOTE Patient evaluated and events noted. The patient is in her room. She is doing better. She reports feeling less depressed and less anxious. She is not confused. She denies any depression or suicidal ideation. She denies any hallucinations. She is ambulatory. She is looking forward to being discharged. She is eating and sleeping well. She is taking her medications and denies any side effects. ASSESSMENT 1. Major depressive disorder, recurrent, moderate. 2. Reported history of posttraumatic stress disorder. 3. History of attention deficit/hyperactivity disorder. PLAN 1. Continue with Lexapro 10 mg p.o. daily. 2. Continue with Valium 5 p.r.n. 3. Continue with Neurontin. 4. Continue with trazodone p.r.n. 5. Monitor for mood. 6. Supportive therapy. Dictated by: INCKY Whelan Job#: [id number]
== END 2018-04-08 11:08 | disposition home health service (06) ==
LOC: ER 12:37 → ERHOLD 15:36 → MED/SURG3 23:49
PROVIDERS: ADMIT Internal Medicine; ATTEND Internal Medicine
DX: G40.909 Epilepsy, unspecified, not intractable, without status epilepticus (principal); R55 Syncope and collapse; N39.0 Urinary tract infection, site not specified; J30.2 Other seasonal allergic rhinitis; F41.9 Anxiety disorder, unspecified; G43.909 Migraine, unspecified, not intractable, without status migrainosus; R53.1 Weakness; G62.9 Polyneuropathy, unspecified; Z88.2 Allergy status to sulfonamides; G93.40 Encephalopathy, unspecified; F33.2 Major depressive disorder, recurrent severe without psychotic features; F43.10 Post-traumatic stress disorder, unspecified; F90.9 Attention-deficit hyperactivity disorder, unspecified type; Z87.891 Personal history of nicotine dependence; F10.21 Alcohol dependence, in remission
CPT/HCPCS: 36415 ×5; 70450; 71045; 80048 ×3; 80053 ×2; 80307; 80320; 81001; 82140; 82550 ×2; 82553 ×2; 82607; 83605; 83735 ×3; 84425; 84443; 84484 ×2; 85025 ×5; 85610; 85730; 86592; 87040; 87086; 93005; 93306; 93880; 95816; 97110; 97116 ×3; 97161; 97530; 99284; G0378 ×6; J0696 ×2; J2405; J7030 ×2; J7050